=== PATIENT | female | born 1945 ===

== ENCOUNTER → 2025-09-15 | Outpatient (CLI) | payer MEDICARE, MEDICAID, SELFPAY | END | disposition home or self-care (01) | PROVIDERS: PCP Nurse Practitioner Primary Care; Referring Provider Nurse Practitioner Primary Care; Visit Provider Student in an Organized Health Care Education/Training Program | DX: E11.621 Type 2 diabetes mellitus with foot ulcer (principal); L97.312 Non-pressure chronic ulcer of right ankle with fat layer exposed; L97.512 Non-pressure chronic ulcer of other part of right foot with fat layer exposed; R60.0 Localized edema; Z79.4 Long term (current) use of insulin; D64.9 Anemia, unspecified; I10 Essential (primary) hypertension; T84.293A Other mechanical complication of internal fixation device of bones of foot and toes, initial encounter | CPT/HCPCS: 11042; 99213; A9270; G0463 ==

== ENCOUNTER → 2025-09-16 | Outpatient (CLI) | payer MEDICARE, MEDICAID, SELFPAY | END | disposition home or self-care (01) | LOC: SLDO 14:11 | PROVIDERS: Referring Provider Student in an Organized Health Care Education/Training Program; Visit Provider Student in an Organized Health Care Education/Training Program | DX: E11.621 Type 2 diabetes mellitus with foot ulcer (principal) | CPT/HCPCS: 87070; 87205 ==

== ENCOUNTER → 2025-09-24 | Outpatient (CLI) | payer MEDICARE, MEDICAID, SELFPAY | END | disposition home or self-care (01) | LOC: SWHD 08:38 | PROVIDERS: PCP Nurse Practitioner Primary Care; Referring Provider Nurse Practitioner Primary Care; Visit Provider Student in an Organized Health Care Education/Training Program | DX: E11.621 Type 2 diabetes mellitus with foot ulcer (principal); L97.312 Non-pressure chronic ulcer of right ankle with fat layer exposed; L97.512 Non-pressure chronic ulcer of other part of right foot with fat layer exposed; R60.0 Localized edema; Z79.4 Long term (current) use of insulin; D64.9 Anemia, unspecified; I10 Essential (primary) hypertension; T84.293A Other mechanical complication of internal fixation device of bones of foot and toes, initial encounter | CPT/HCPCS: 97597; A9270 ==

== ENCOUNTER → 2025-09-29 | Outpatient (CLI) | payer MEDICARE, MEDICAID, SELFPAY | END | disposition home or self-care (01) | LOC: SWHD 14:08 | PROVIDERS: PCP Nurse Practitioner Primary Care; Referring Provider Nurse Practitioner Primary Care; Visit Provider Surgery | DX: E11.621 Type 2 diabetes mellitus with foot ulcer (principal); L97.312 Non-pressure chronic ulcer of right ankle with fat layer exposed; L97.512 Non-pressure chronic ulcer of other part of right foot with fat layer exposed; R60.0 Localized edema; Z79.4 Long term (current) use of insulin; D64.9 Anemia, unspecified; I10 Essential (primary) hypertension; T84.293A Other mechanical complication of internal fixation device of bones of foot and toes, initial encounter | CPT/HCPCS: 11042; A9270 ==

== ENCOUNTER → 2025-10-06 | Outpatient (CLI) | payer MEDICARE, MEDICAID, SELFPAY | END | disposition home or self-care (01) | LOC: SWHD 12:56 | PROVIDERS: PCP Nurse Practitioner Primary Care; Referring Provider Nurse Practitioner Primary Care; Visit Provider Student in an Organized Health Care Education/Training Program | DX: E11.621 Type 2 diabetes mellitus with foot ulcer (principal); L97.312 Non-pressure chronic ulcer of right ankle with fat layer exposed; L97.512 Non-pressure chronic ulcer of other part of right foot with fat layer exposed; R60.0 Localized edema; Z79.4 Long term (current) use of insulin; D64.9 Anemia, unspecified; I10 Essential (primary) hypertension; T84.293A Other mechanical complication of internal fixation device of bones of foot and toes, initial encounter | CPT/HCPCS: 11042; A9270 ==

== ENCOUNTER → 2025-10-13 | Outpatient (CLI) | payer MEDICARE, MEDICAID, SELFPAY | END | disposition home or self-care (01) | LOC: SWHD 14:10 | PROVIDERS: PCP Nurse Practitioner Primary Care; Referring Provider Nurse Practitioner Primary Care; Visit Provider Surgery | DX: E11.621 Type 2 diabetes mellitus with foot ulcer (principal); L97.312 Non-pressure chronic ulcer of right ankle with fat layer exposed; L97.512 Non-pressure chronic ulcer of other part of right foot with fat layer exposed; T84.293A Other mechanical complication of internal fixation device of bones of foot and toes, initial encounter; R60.0 Localized edema; Z79.4 Long term (current) use of insulin; D64.9 Anemia, unspecified; I10 Essential (primary) hypertension | CPT/HCPCS: 11042; A9270 ==

== ENCOUNTER → 2025-10-20 | Outpatient (CLI) | payer MEDICARE, MEDICAID, SELFPAY | END | disposition home or self-care (01) | LOC: SWHD 08:20 | PROVIDERS: PCP Physician Assistant; Referring Provider Physician Assistant; Visit Provider Student in an Organized Health Care Education/Training Program | DX: E11.621 Type 2 diabetes mellitus with foot ulcer (principal); L97.312 Non-pressure chronic ulcer of right ankle with fat layer exposed; L97.512 Non-pressure chronic ulcer of other part of right foot with fat layer exposed; T84.293A Other mechanical complication of internal fixation device of bones of foot and toes, initial encounter; R60.0 Localized edema; Z79.4 Long term (current) use of insulin; D64.9 Anemia, unspecified; I10 Essential (primary) hypertension | CPT/HCPCS: 11042; A9270 ==